=== PATIENT | female | born 1975 | race Caucasian/White ===

== ENCOUNTER 2017-08-19 06:35 | Day surgery (SDC) | payer BC ==
[2017-08-19] MEDS ORDERED: Lactated Ringers 1,000 ML IV SCH (07:00)
[2017-08-19] MEDS ORDERED: Clindamycin Phosphate in D5W 600 MG in Premix Bag 1 BAG IV ONE ×2 (07:00)
[2017-08-19] MEDS ORDERED: fentaNYL 100 MCG/2 ML SDV ONE (07:12)
[2017-08-19] MEDS ORDERED: Propofol 200 MG/20 ML SDV ONE (07:12)
[2017-08-19] MEDS ORDERED: Lidocaine 2% 5 ML SDV ONE (07:12)
[2017-08-19] MEDS ORDERED: Midazolam 1 MG/ML 2 ML SDV ONE (07:12)
[2017-08-19] MEDS ORDERED: Bupivacaine 25%/EPINEPHrine/PF 30 ML ONE (07:21)
--- NOTE | 2017-08-19 07:24 | PCM.PREANE ---
Preanesthetic Assessment - Anesthesia/Transfusion/Family Hx Anesthesia History: Prior Anesthesia Without Reaction Family History of Anesthesia Reaction: No Transfusion History: No Prior Transfusion(s) Intubation History: Unknown - Physical Assessment Height: 1.63 m Weight: 92.533 kg ASA Class: 2 Mental Status: Alert & Oriented x3 Airway Class: Mallampati = 2 Dentition: Reports: Normal Dentition Thyro-Mental Finger Breadths: 3 Mouth Opening Finger Breadths: 3 ROM/Head Extension: Full Lungs: Clear to Auscultation, Normal Respiratory Effort Cardiovascular: Regular Rate, Regular Rhythm - Allergies Allergies/Adverse Reactions: Allergies Allergy/AdvReac Type Severity Reaction Status Date / Time adhesive tape Allergy Rash Verified 08/13/17 11:25 codeine Allergy Airway Verified 08/13/17 11:25 Tightness Penicillins Allergy Rash Verified 08/13/17 11:25 - Blood Blood Available: No - Anesthesia Plan Pre-Op Medication Ordered: None - Acknowledgements Anesthesia Type Planned: MAC Pt an Appropriate Candidate for the Planned Anesthesia: Yes Alternatives and Risks of Anesthesia Discussed w Pt/Guardian: Yes Pt/Guardian Understands and Agrees with Anesthesia Plan: Yes PreAnesthesia Questionnaire Other HEENT History: wears glasses for driving Cardiovascular History: Reports: Heart Murmur Respiratory History: Reports: Asthma (mild) Other Respiratory History: has not uses rescue inhaler for a year Gastrointestinal History: Reports: None Genitourinary History: Reports: None 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 Musculoskeletal History: Reports: Fracture Other Musculoskeletal History: hx of fx left ankle Neurological History: Reports: None Psychiatric History: Reports: Anxiety, Depression Other Psychiatric History: very anxious about this procedure Endocrine/Metabolic History: Reports: Hypothyroidism, Obesity/BMI 30+ Hematologic History: Reports: None Immunologic History: Reports: None Oncologic (Cancer) History: Reports: None Dermatologic History: Reports: Eczema Other Dermatologic History: acne - Past Surgical History HEENT Surgical History: Reports: LASIK Female Surgical History: Reports: Breast Biopsy (bilateral breast lumpectomy) , Hysterectomy - SUBSTANCE USE Smoking Status *Q: Never Smoker Recreational Drug Use History: No - HOME MEDS Home Medications: Home Meds Albuterol [Ventolin HFA] 2 puff INH QID PRN 07/18/16 [History] Clindamycin Phosphate 1 applic TOP BID PRN 07/18/16 [History] Levothyroxine Sodium [Synthroid] 300 mg PO DAILY 07/18/16 [History] Levothyroxine [Synthroid] 50 mg PO DAILY 07/18/16 [History] Montelukast [Singulair] 10 mg PO DAILY PRN 07/18/16 [History] Sertraline [Zoloft] 100 mg PO DAILY 07/18/16 [History] Nystatin [Nystatin Ointment] 1 applic TOP ASDIRECTED PRN 08/13/17 [History] - CURRENT (IN HOUSE) MEDS Current Meds: Current Medications Bupivacaine HCl/Epinephrine Bitart (Marcaine 0.25%/Epinephrine 1:200,000) 10 ml INJECT ONETIME ONE Stop: 08/19/17 08:01 Lactated Ringer's (Ringers, Lactated) 1,000 mls @ 125 mls/hr IV ASDIRECTED ROMY Last Admin: 08/19/17 07:15 Dose: 125 mls/hr Discontinued Medications Fentanyl (Sublimaze) Confirm Administered Dose 100 mcg .ROUTE .STK-MED ONE Stop: 08/19/17 07:13 Clindamycin Phosphate 600 mg/ (Premix) 50 mls @ 150 mls/hr IV ONETIME ONE Stop: 08/19/17 07:19 Lidocaine (Xylocaine-Mpf 2%) Confirm Administered Dose 5 ml .ROUTE .STK-MED ONE Stop: 08/19/17 07:13 Midazolam HCl (Versed 1 Mg/Ml) Confirm Administered Dose 2 mg .ROUTE .STK-MED ONE Stop: 08/19/17 07:13 Propofol (Diprivan 20 Ml) Confirm Administered Dose 200 mg .ROUTE .STK-MED ONE Stop: 08/19/17 07:13
[2017-08-19] MEDS ORDERED: Bupivacaine 0.25%/EPINEPHrine 1:200,000 10 ML SDV INJECT ONE (08:00)
--- NOTE | 2017-08-19 09:01 | PCM48HPAN ---
Post Anesthesia Note - EVALUATION WITHIN 48HRS OF ANESTHETIC Vital Signs in Normal Range: Yes Patient Participated in Evaluation: Yes Respiratory Function Stable: Yes Airway Patent: Yes Cardiovascular Function Stable: Yes Hydration Status Stable: Yes Pain Control Satisfactory: Yes Nausea and Vomiting Control Satisfactory: Yes Mental Status Recovered: Yes - COMMENTS/OBSERVATIONS Free Text/Narrative:: No anesthesia problems. Patient skipped recovery room phase of postoperative care.
[2017-08-19 09:08] VITALS: BP 119/68
--- NOTE | 2017-08-20 18:02 | PCM.OPNOTE ---
- General Post-Op/Procedure Note Date of Surgery/Procedure: 08/19/17 Operative Procedure(s): left carpal tunnel release Pre Op Diagnosis: left carpal tunnel Post-Op Diagnosis: Same Anesthesia Technique: Local, MAC Primary Surgeon: Ita Hines Senior Licensing Manager: Maria Esther Mohamud Complications: None Condition: Good Free Text/Narrative:: [id number]
--- NOTE | 2017-08-20 23:22 | OR ---
SURGEON: MATT ARGUETA MD DATE OF PROCEDURE: 08/19/2017 PREOPERATIVE DIAGNOSIS: Left carpal tunnel syndrome. POSTOPERATIVE DIAGNOSIS: Left carpal tunnel syndrome. PROCEDURE PERFORMED: Left carpal tunnel release. INDICATIONS: Ms. Norton is seen today in evaluation for left carpal tunnel syndrome. Risks and benefits of left carpal tunnel release were discussed with her and she was in agreement to proceed. Risks were including, but not limited to, bleeding, infection, damage to underlying or overlying structures, possible need for future interventions and possible scarring. PROCEDURE IN DETAIL: After informed consent was obtained and placed on the chart, the patient was brought to the operating theater and laid in supine position. After adequate local MAC anesthetic was obtained, the area was prepped and draped in a normal fashion and then a time-out was completed to confirm side and site. Once adequately prepped and draped and confirmed, the arm was exsanguinated. The tourniquet was insufflated to 200 mmHg and the dissection was then carried over the transverse carpal ligament with a 15 blade through the skin and subcutaneous tissues. Under direct visualization, the ligament was breached and dissection was carried distally and proximally using a littler scissors. Once adequately released, the area was irrigated and closed using 5-0 nylon stitch in a horizontal mattress fashion. The wounds were dressed with Xeroform, fluffs, and a Kerlix gauze dressing and a 2-inch Rhys wrap. The tourniquet was desufflated at the end the case. FOLLOWUP INSTRUCTIONS: The patient will see us in clinic in 10 to 14 days for suture removal, sooner if any problems, questions, or concerns. All counts and needles were correct at the end the case. HEGGTHE / MODL /[id number]
== END 2017-08-19 09:10 | disposition home or self-care (01) ==
LOC: MW.SDS 06:35
PROVIDERS: ATTEND Plastic Surgery
DX: G56.03 Carpal tunnel syndrome, bilateral upper limbs (principal); J45.909 Unspecified asthma, uncomplicated; F41.9 Anxiety disorder, unspecified; F32.9 Major depressive disorder, single episode, unspecified; E03.9 Hypothyroidism, unspecified; E66.9 Obesity, unspecified; Z88.0 Allergy status to penicillin; Z88.5 Allergy status to narcotic agent; Z91.048 Other nonmedicinal substance allergy status; Z79.899 Other long term (current) drug therapy; Z68.35 Body mass index [BMI] 35.0-35.9, adult; Z90.710 Acquired absence of both cervix and uterus; Z98.890 Other specified postprocedural states
CPT/HCPCS: 64721; J2250; J3010; J7120; 01810; J2704

== ENCOUNTER 2018-07-21 06:28 | Day surgery (SDC) | payer BC ==
[2018-07-21] MEDS ORDERED: Lactated Ringers 1,000 ML IV SCH ×3 (06:45→08:00)
[2018-07-21] MEDS ORDERED: Sodium Chloride 0.9% 10 ML Syringe FLUSH PRN (06:54)
[2018-07-21] MEDS ORDERED: Sodium Chloride 0.9% 2.5 ML Syringe FLUSH PRN (06:54)
[2018-07-21] MEDS ORDERED: Midazolam 1 MG/ML 2 ML SDV ONE (06:57)
[2018-07-21] MEDS ORDERED: fentaNYL 100 MCG/2 ML SDV ONE (06:57)
[2018-07-21] MEDS ORDERED: Propofol 200 MG/20 ML SDV ONE (06:57)
[2018-07-21] MEDS ORDERED: Clindamycin Phosphate in D5W 600 MG in Premix Bag 50 BAG IV ONE ×2 (07:00)
--- NOTE | 2018-07-21 07:03 | PCM.PREANE ---
Preanesthetic Assessment - Anesthesia/Transfusion/Family Hx Anesthesia History: Prior Anesthesia Without Reaction Transfusion History: No Prior Transfusion(s) Intubation History: Unknown - Review of Systems General: No Symptoms Pulmonary: No Symptoms Cardiovascular: No Symptoms Gastrointestinal: No Symptoms Neurological: No Symptoms Other: Reports: None - Physical Assessment NPO Status Date: 07/21/18 NPO Status Time: 05:00 (Sips H2o WITH PILL) O2 Sat by Pulse Oximetry: 95 Respiratory Rate: 15 Vital Signs: Last Vital Signs Temp 98.4 F 07/21/18 06:45 Pulse 88 07/21/18 06:45 Resp 15 07/21/18 06:45 BP 128/67 07/21/18 06:45 Pulse Ox 95 07/21/18 06:45 Height: 5 ft 4 in Weight: 94.801 kg ASA Class: 3 Mental Status: Alert & Oriented x3 Airway Class: Mallampati = 2 Dentition: Reports: Normal Dentition Thyro-Mental Finger Breadths: 3 Mouth Opening Finger Breadths: 3 ROM/Head Extension: Full Lungs: Clear to Auscultation, Normal Respiratory Effort Cardiovascular: Regular Rate, Regular Rhythm - Allergies Allergies/Adverse Reactions: Allergies Allergy/AdvReac Type Severity Reaction Status Date / Time adhesive tape Allergy Rash Verified 07/14/18 13:20 codeine Allergy Airway Verified 07/14/18 13:20 Tightness Penicillins Allergy Rash Verified 07/14/18 13:20 - Acknowledgements Anesthesia Type Planned: MAC Pt an Appropriate Candidate for the Planned Anesthesia: Yes Alternatives and Risks of Anesthesia Discussed w Pt/Guardian: Yes Pt/Guardian Understands and Agrees with Anesthesia Plan: Yes PreAnesthesia Questionnaire HEENT History: Reports: Allergic Rhinitis Other HEENT History: wears glasses for driving Cardiovascular History: Reports: Heart Murmur Respiratory History: Reports: Asthma Other Respiratory History: has not uses rescue inhaler for a year Gastrointestinal History: Reports: None Genitourinary History: Reports: None GUARDIAN AD LITEM History: Reports: Endometriosis Musculoskeletal History: Reports: Fracture Other Musculoskeletal History: hx of fx right ankle Neurological History: Reports: None Psychiatric History: Reports: Depression Other Psychiatric History: very anxious about this procedure Endocrine/Metabolic History: Reports: Hypothyroidism, Obesity/BMI 30+ Hematologic History: Reports: Anemia Immunologic History: Reports: None Oncologic (Cancer) History: Reports: None Dermatologic History: Reports: Eczema Other Dermatologic History: acne - Past Surgical History Head Surgeries/Procedures: Reports: None HEENT Surgical History: Reports: LASIK Female Surgical History: Reports: Breast Biopsy, Hysterectomy Musculoskeletal Surgical History: Reports: Carpal Tunnel - SUBSTANCE USE Smoking Status *Q: Never Smoker Recreational Drug Use History: No - HOME MEDS Home Medications: Home Meds Clindamycin Phosphate 1 applic TOP BID PRN 07/18/16 [History] Montelukast [Singulair] 10 mg PO DAILY PRN 07/18/16 [History] Sertraline [Zoloft] 100 mg PO DAILY 07/18/16 [History] Fluticasone/Vilanterol [Breo Ellipta 200-25 Mcg INH] 1 dose INH DAILY PRN [History] Levothyroxine 75 mcg PO QAM 07/15/18 [History] Levothyroxine 200 mcg PO QAM 07/15/18 [History] - CURRENT (IN HOUSE) MEDS Current Meds: Current Medications Lactated Ringer's (Ringers, Lactated) 1,000 mls @ 125 mls/hr IV ASDIRECTED ROMY Last Admin: 07/21/18 06:59 Dose: 125 mls/hr Lactated Ringer's (Ringers, Lactated) 1,000 mls @ 125 mls/hr IV ASDIRECTED ROMY Sodium Chloride (Saline Flush) 10 ml FLUSH ASDIRECTED PRN PRN Reason: Keep Vein Open Sodium Chloride (Saline Flush) 2.5 ml FLUSH ASDIRECTED PRN PRN Reason: Keep Vein Open Discontinued Medications Fentanyl (Sublimaze) Confirm Administered Dose 100 mcg .ROUTE .STK-MED ONE Stop: 07/21/18 06:58 Lidocaine HCl (Xylocaine-Mpf 1%) Confirm Administered Dose 5 mls @ as directed .ROUTE .STK-MED ONE Stop: 07/21/18 06:58 Midazolam HCl (Versed 1 Mg/Ml) Confirm Administered Dose 2 mg .ROUTE .STK-MED ONE Stop: 07/21/18 06:58 Propofol (Diprivan 20 Ml) Confirm Administered Dose 200 mg .ROUTE .STK-MED ONE Stop: 07/21/18 06:58
[2018-07-21] MEDS ORDERED: Bupivacaine 0.25%/EPINEPHrine 1:200,000 10 ML SDV ONE (07:31)
[2018-07-21 08:46] VITALS: BP 140/77
--- NOTE | 2018-07-21 08:52 | PCM48HPAN ---
Post Anesthesia Note - EVALUATION WITHIN 48HRS OF ANESTHETIC Vital Signs in Normal Range: Yes Patient Participated in Evaluation: Yes Respiratory Function Stable: Yes Airway Patent: Yes Cardiovascular Function Stable: Yes Hydration Status Stable: Yes Pain Control Satisfactory: Yes Nausea and Vomiting Control Satisfactory: Yes Mental Status Recovered: Yes Resp Rate: 15
--- NOTE | 2018-07-21 09:12 | PCM.OPNOTE ---
- General Post-Op/Procedure Note Date of Surgery/Procedure: 07/21/18 Operative Procedure(s): right carpal tunnel release Pre Op Diagnosis: right carpal tunnel syndrome Post-Op Diagnosis: Same Anesthesia Technique: Local, MAC Primary Surgeon: Ita Hines Supervisor Fleshing: Maria Esther Mohamud Role of Supervisor Fleshing: r/p/d/c/p Complications: None Condition: Good
[2018-07-22] MEDS ORDERED: Acetaminophen/HYDROcodone 325-5 MG Tab PO PRN (08:00)
--- NOTE | 2018-07-22 15:15 | OR ---
SURGEON: MATT ARGUETA MD DATE OF PROCEDURE: 07/21/2018 PREOPERATIVE DIAGNOSIS: Right carpal tunnel syndrome. POSTOPERATIVE DIAGNOSIS: Right carpal tunnel syndrome. PROCEDURES: Right carpal tunnel release. OR MANAGER: Maria Esther Mohamud. REASON FOR AND ROLE OF OR MANAGER: Retraction, prepping, draping, positioning and closure assistance. ANESTHESIA: Local MAC. INDICATIONS: Ms. Norton is a 43-year-old female seen today in evaluation for right carpal tunnel release. Risks and benefits were discussed with her and she was in agreement to proceed. Risks were including, but not limited to, bleeding, infection, damage to underlying or overlying structures, possible need for future interventions, possible scarring. PROCEDURE IN DETAIL: After informed consent was obtained and placed on the chart, the patient was brought to the operating theater and laid in supine position. After adequate local MAC anesthesia was obtained, the area was prepped and draped, and a time- out was completed to confirm side and site. Once adequately confirmed, attention was then paid to 0.25% Marcaine with epinephrine injection. The arm was then exsanguinated and tourniquet was insufflated to 200 mmHg. Attention was then paid to dissection over the transverse carpal ligament. A #15 blade was used to dissect through skin and subcutaneous tissues. Once adequately breached, the dissection was carried distally and proximally under direct visualization until complete release of ligament. Once adequately released, the area was copiously irrigated and closed in an interrupted fashion using a 5-0 nylon stitch in a horizontal mattress fashion. Once closed, the wound was dressed with Xeroform fluffs, 2-inch Denise, and a 2- inch Rhys wrap. The patient tolerated this well. All counts needles were correct at the end of the case. FOLLOWUP INSTRUCTIONS: The patient will see us in approximately 2 weeks or sooner if any problems, questions, or concerns. HEGGTHE / RUBÉNL /[id number]
== END 2018-07-21 08:50 | disposition home or self-care (01) ==
LOC: MW.SDS 06:28
PROVIDERS: ATTEND Plastic Surgery
DX: G56.01 Carpal tunnel syndrome, right upper limb (principal); J45.909 Unspecified asthma, uncomplicated; E66.9 Obesity, unspecified; Z68.35 Body mass index [BMI] 35.0-35.9, adult; F32.9 Major depressive disorder, single episode, unspecified; E03.9 Hypothyroidism, unspecified; Z79.899 Other long term (current) drug therapy; Z88.5 Allergy status to narcotic agent; Z88.1 Allergy status to other antibiotic agents; Z91.048 Other nonmedicinal substance allergy status
CPT/HCPCS: 64721; J2250; J2704; J3010; J3490; J7120

== ENCOUNTER 2021-09-17 10:56 | Day surgery (SDC) | payer BC ==
[~2021-09-17 10:56] MED LIST: Clindamycin Phosphate in D5W 600 MG in Premix Bag 1 BAG IV ONE; Lactated Ringers 1,000 ML IV SCH; Sodium Chloride 0.9% 10 ML SDV IV PRN; Sodium Chloride 0.9% 10 ML Syringe FLUSH PRN; Sodium Chloride 0.9% 2.5 ML Syringe FLUSH PRN
[2021-09-17] MEDS ORDERED: Albuterol 0.083% 2.5 MG/3 ML Neb Soln NEB PRN (11:12)
[2021-09-17] MEDS ORDERED: Metoclopramide 10 MG/2 ML SDV IVPUSH PRN (11:12)
[2021-09-17] MEDS ORDERED: Naloxone 0.4 MG/ML SDV IVPUSH PRN (11:12)
[2021-09-17] MEDS ORDERED: fentaNYL 100 MCG/2 ML SDV IVPUSH PRN ×2 (11:12→14:32)
[2021-09-17] MEDS ORDERED: Ondansetron 4 MG/2 ML SDV IVPUSH PRN (11:12)
[2021-09-17] MEDS ORDERED: HYDROmorphone 1 MG/ML Syringe IVPUSH PRN (11:12)
--- NOTE | 2021-09-17 11:24 | PCM.PREANE ---
Preanesthetic Assessment - Procedure Proposed Procedure: Excision of Left Buttock Melanoma - Anesthesia/Transfusion/Family Hx Anesthesia History: Prior Anesthesia Without Reaction Family History of Anesthesia Reaction: No Transfusion History: No Prior Transfusion(s) Intubation History: Unknown - Review of Systems General: No Symptoms Pulmonary: No Symptoms (Asthma PRN MDI) Cardiovascular: No Symptoms (HTN, HLD) Gastrointestinal: No Symptoms Neurological: No Symptoms Other: Reports: Diabetes (NIDDM), Liver Problems (Fatty Liver), Thyroid Problems (Hypo) - Physical Assessment NPO Status Date: 09/16/21 NPO Status Time: 22:00 Height: 5 ft 5 in Weight: 93.44 kg ASA Class: 2 Mental Status: Alert & Oriented x3 Airway Class: Mallampati = 3 Dentition: Reports: Normal Dentition Thyro-Mental Finger Breadths: 3 Mouth Opening Finger Breadths: 3 ROM/Head Extension: Full Lungs: Clear to Auscultation, Normal Respiratory Effort Cardiovascular: Regular Rate, Regular Rhythm - Allergies Allergies/Adverse Reactions: Allergies Allergy/AdvReac Type Severity Reaction Status Date / Time adhesive tape Allergy Rash Verified 09/12/21 10:01 codeine Allergy Airway Verified 09/12/21 10:01 Tightness Penicillins Allergy Rash Verified 09/12/21 10:01 - Acknowledgements Anesthesia Type Planned: General Anesthesia Pt an Appropriate Candidate for the Planned Anesthesia: Yes Alternatives and Risks of Anesthesia Discussed w Pt/Guardian: Yes Pt/Guardian Understands and Agrees with Anesthesia Plan: Yes PreAnesthesia Questionnaire HEENT History: Reports: Allergic Rhinitis, Other (See Below) Other HEENT History: wears glasses Cardiovascular History: Reports: Heart Murmur, High Cholesterol, Hypertension Respiratory History: Reports: Asthma Gastrointestinal History: Reports: None Genitourinary History: Reports: None 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: Reports: Endometriosis, Musculoskeletal History: Reports: Fracture Other Musculoskeletal History: hx of fx right foot and thumb Neurological History: Reports: None Psychiatric History: Reports: Depression Other Psychiatric History: very anxious about this procedure Endocrine/Metabolic History: Reports: Diabetes, Type II, Hypothyroidism, Obesity/BMI 30+ Hematologic History: Reports: Anemia Immunologic History: Reports: None Oncologic (Cancer) History: Reports: Malignant Melanoma Other Oncologic History: 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 Dermatologic History: Reports: Psoriasis - Past Surgical History Head Surgeries/Procedures: Reports: None HEENT Surgical History: Reports: LASIK Cardiovascular Surgical History: Reports: None Respiratory Surgical History: Reports: None GI Surgical History: Reports: None Female Surgical History: Reports: Breast Biopsy, Hysterectomy Other Female Surgeries/Procedures: bilateral breast lumpectomy Endocrine Surgical History: Reports: None Neurological Surgical History: Reports: None Musculoskeletal Surgical History: Reports: Carpal Tunnel Oncologic Surgical History: Reports: None Dermatological Surgical History: Reports: Skin Biopsy - SUBSTANCE USE Tobacco Use Status *Q: Never Tobacco User - HOME MEDS Home Medications: Home Meds Montelukast [Singulair] 10 mg PO DAILY PRN 07/18/16 [History] Sertraline [Zoloft] 100 mg PO DAILY 07/18/16 [History] Fluticasone/Vilanterol [Breo Ellipta 200-25 MCG Inhalation Kit] 1 inhalation INH DAILY PRN 07/15/18 [History] Levothyroxine 100 mcg PO QAM 07/15/18 [History] Albuterol Sulfate [Albuterol Sulfate Hfa] 1 - 2 puff INH ASDIRECTED PRN 09/12/21 [History] Diclofenac Sodium 50 mg PO BID PRN 09/12/21 [History] Fluocinonide [Lidex 0.05% Oint] 1 applic TOP ASDIRECTED PRN 09/12/21 [History] Losartan [Cozaar] 50 mg PO DAILY 09/12/21 [History] Semaglutide [Ozempic] 1 injection SUBCUT WEEKLY 09/12/21 [History] Simvastatin 40 mg PO DAILY 09/12/21 [History] metFORMIN HCl [Metformin HCl] 500 mg PO QID 09/12/21 [History] sitaGLIPtin Phosphate [Januvia] 50 mg PO DAILY 09/12/21 [History] - CURRENT (IN HOUSE) MEDS Current Meds: Current Medications Clindamycin Phosphate 600 mg/ (Premix) 50 mls @ 100 mls/hr IV ONETIME ONE Stop: 09/17/21 11:15 Lactated Ringer's (Ringers, Lactated) 1,000 mls @ 125 mls/hr IV ASDIRECTED ROMY Sodium Chloride (Sodium Chloride 0.9% 10 Ml Sdv) 10 ml IV ASDIRECTED PRN PRN Reason: IV Use Sodium Chloride (Sodium Chloride 0.9% 10 Ml Syringe) 10 ml FLUSH ASDIRECTED PRN PRN Reason: Keep Vein Open Sodium Chloride (Sodium Chloride 0.9% 2.5 Ml Syringe) 2.5 ml FLUSH ASDIRECTED PRN PRN Reason: Keep Vein Open
[2021-09-17] MEDS ORDERED: Propofol 200 MG/20 ML SDV ONE (11:26)
[2021-09-17] MEDS ORDERED: Midazolam 1 MG/ML 2 ML SDV ONE (11:26)
[2021-09-17] MEDS ORDERED: fentaNYL 100 MCG/2 ML SDV ONE (11:26)
[2021-09-17] MEDS ORDERED: Ketorolac 30 MG/ML SDV ONE (11:32)
[2021-09-17] MEDS ORDERED: Lidocaine 2% 5 ML SDV ONE (11:32)
[2021-09-17] MEDS ORDERED: Ondansetron 4 MG/2 ML SDV ONE (11:32)
[2021-09-17] MEDS ORDERED: Glycopyrrolate 0.2 MG/ML SDV ONE (11:32)
[2021-09-17] MEDS ORDERED: Bupivacaine 0.5% 10 ML SDV ONE (13:10)
[2021-09-17] MEDS ORDERED: Lidocaine 1% 20 ML MDV ONE (13:10)
[2021-09-17] MEDS ORDERED: Octyl 2-Cyanoacrylate 1 Tube ONE (13:11)
--- NOTE | 2021-09-17 14:27 | PCM.OPNOTE ---
- General Post-Op/Procedure Note Date of Surgery/Procedure: 09/17/21 Operative Procedure(s): Excision left lateral buttock melanoma Findings: 4 x 2 x 2 cm excised piece of tissue Pre Op Diagnosis: Melanoma of left buttock Post-Op Diagnosis: same Anesthesia Technique: General LMA, Local Primary Surgeon: Tiffani Allison Condition: Good
[2021-09-17] MEDS ORDERED: Acetaminophen 1,000 MG in Premix Bag 1 BAG IV PRN (14:32)
--- NOTE | 2021-09-17 14:33 | PCM.POSTAN ---
POST ANESTHESIA ASSESSMENT - MENTAL STATUS Mental Status: Alert - VITAL SIGNS Vital Signs: Last Vital Signs Temp 36.1 C 09/17/21 11:15 Pulse 79 09/17/21 11:15 Resp 16 09/17/21 11:15 BP 122/67 09/17/21 11:15 Pulse Ox 95 09/17/21 11:15 - RESPIRATORY Respiratory Status: Respiratory Rate WNL - CARDIOVASCULAR CV Status: Pulse Rate WNL - GASTROINTESTINAL GI Status: No Symptoms - POST OP HYDRATION Hydration Status: Adequate & Stable
--- NOTE | 2021-09-17 14:48 | PCM48HPAN ---
Post Anesthesia Note - EVALUATION WITHIN 48HRS OF ANESTHETIC Vital Signs in Normal Range: Yes Patient Participated in Evaluation: Yes Respiratory Function Stable: Yes Airway Patent: Yes Cardiovascular Function Stable: Yes Hydration Status Stable: Yes Pain Control Satisfactory: Yes Nausea and Vomiting Control Satisfactory: Yes Mental Status Recovered: Yes Vital Signs: Last Vital Signs Temp 36.3 C 09/17/21 14:27 Pulse 80 09/17/21 14:43 Resp 15 09/17/21 14:43 BP 124/75 09/17/21 14:37 Pulse Ox 94 L 09/17/21 14:43
[2021-09-17 15:33] VITALS: BP 112/70; PULSE 76
--- NOTE | 2021-09-18 18:29 | OR ---
SURGEON: TIFFANI ALLISON MD DATE OF PROCEDURE: 09/17/2021 PREOPERATIVE DIAGNOSIS: Left buttock melanoma. POSTOPERATIVE DIAGNOSIS: Left buttock melanoma. PROCEDURE PERFORMED: Excision, left buttock melanoma. PRIMARY SURGEON: Tiffani Allison MD ANESTHESIA: General LMA, local. FLUIDS: 650 mL crystalloid. ESTIMATED BLOOD LOSS: 10 mL. FINDINGS: 4 cm x 2 cm x 2 cm excised piece of tissue containing previously biopsied melanoma. Margins were marked with intraoperative paint. COMPLICATIONS: None. 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 During her recent exam, a lesion was biopsied and found to be melanoma. Its Breslow depth was 0.45 mm. She was sent to my office for a complete excision with margins. The patient and I discussed the procedure, expected perioperative course, and the risks. She verbalized understanding and wishes to proceed. PROCEDURE IN DETAIL: The patient was brought in to the OR and placed on the OR cart in a right lateral decubitus position. A time-out was completed verifying the patient's name, age, date of , allergies, and procedure to be performed. The melanoma site was marked in the preoperative area and margins were measured out. General LMA anesthesia was induced. The left hip was prepped and draped in usual standard fashion. I anesthetized the area around my operative site with a 1:1 mixture of 0.5% Marcaine plain and 1% lidocaine plain. An elliptical incision was made along the skin lines, making sure to take a 1 cm circumferential margin around the melanoma site. Electrocautery was then used to dissect down to the subcutaneous fat. I dissected down to a depth of 1 cm. I then used electrocautery to undermine the lesion. Once the lesion was free of the surrounding tissue, it was placed on the back table and margins were inked with intraoperative paint. I then measured my piece of tissue. The specimen measured 4 x 2 x 2 cm in size. It was sent to Pathology labeled as left buttock melanoma. Electrocautery was used to achieve hemostasis within the wound bed itself. I then undermined the skin on the superior and posterior skin edges of the buttock to allow some redundancy and more of a tension-free closure. The subcutaneous fat layer was closed with interrupted layers of 3-0 Vicryl suture. The skin was closed with interrupted horizontal mattress stitches using 3-0 Ethilon. To then support this incision, interrupted 3-0 Ethilon sutures were placed in-between my horizontal mattress sutures. The wound was then covered with a sterile dressing. The patient was extubated and taken to PACU in stable condition. All counts were complete and correct at the end of the case, and she tolerated it well with no apparent complications. BLANCA MASSEY /[id number] JAMES
== END 2021-09-17 15:36 | disposition home or self-care (01) ==
LOC: MW.SDS 10:56
PROVIDERS: ATTEND Surgery
DX: C43.59 Malignant melanoma of other part of trunk (principal); J45.909 Unspecified asthma, uncomplicated; E03.9 Hypothyroidism, unspecified; F32.A Depression, unspecified; I10 Essential (primary) hypertension; E78.5 Hyperlipidemia, unspecified; E11.9 Type 2 diabetes mellitus without complications; Z88.5 Allergy status to narcotic agent; Z88.0 Allergy status to penicillin; Z79.899 Other long term (current) drug therapy; Z79.890 Hormone replacement therapy; Z98.890 Other specified postprocedural states; Z79.84 Long term (current) use of oral hypoglycemic drugs
CPT/HCPCS: 11604; 12032; J1885; J2250; J2370; J2405; J2704; J3490; J7120; A9270-GY; J3010

== ENCOUNTER 2021-10-03 05:27 | Emergency (ER) | payer BC ==
--- NOTE | 2021-10-03 05:45 | EDM.PDOC ---
ED HPI GENERAL MEDICAL PROBLEM - General Chief Complaint: Skin Complaint Stated Complaint: INCISION OPEN AND BLEEDING Time Seen by Provider: 10/03/21 05:28 Source of Information: Reports: Patient History Limitations: Reports: No Limitations - History of Present Illness INITIAL COMMENTS - FREE TEXT/NARRATIVE: 46-year-old female status post left buttock melanoma complete excision with margins by Dr. Allison on 09/17/21, she had stitches placed postoperatively, and they were removed yesterday by Dr. Allison. She had Steri-Strips applied yesterday after the stitches were removed. Patient went to sleep this evening with no issues and woke up just prior to arrival with blood around her left buttock, and she noticed a wound was gaping and actively bleeding. ROS: A 10-point review of systems, other than pertinent positives and negatives as stated per HPI, is otherwise negative Past medical history: No additional pertinent history Past Surgical history: No additional pertinent history Social history: No additional pertinent history Family history: No additional pertinent history PHYSICAL EXAM General: AOx4, GCS = 15, No distress HEENT: dry mucous membrane Neck: supple, no meningismus, no Kernig or Brudzinski Cardiac: S1S2 RRR Respiratory: CTAB, no crackles or rales, no wheezing Abdomen: Soft, nontender, no rebound or guarding, nondistended, no pulsatile mass. Back: nontender Skin: 2 cm left buttock surgical wound dehiscence with mild bleeding. Musculoskeletal: NVI distally, no deformity Neuro: No focal deficits, CN 2 - 12 WNL. Left Buttock Pain Score (Numeric/FACES): 3 - Related Data Allergies Allergy/AdvReac Type Severity Reaction Status Date / Time adhesive tape Allergy Rash Verified 10/03/21 05:34 codeine Allergy Airway Verified 10/03/21 05:34 Tightness Penicillins Allergy Rash Verified 10/03/21 05:34 Home Meds: Home Meds Montelukast [Singulair] 10 mg PO DAILY PRN 09/02/16 [History] Sertraline [Zoloft] 100 mg PO DAILY 07/18/16 [History] Fluticasone/Vilanterol [Breo Ellipta 200-25 MCG Inhalation Kit] 1 inhalation INH DAILY PRN 07/15/18 [History] Levothyroxine 100 mcg PO QAM 07/15/18 [History] Albuterol Sulfate [Albuterol Sulfate Hfa] 1 - 2 puff INH ASDIRECTED PRN 09/12/21 [History] Diclofenac Sodium 50 mg PO BID PRN 09/12/21 [History] Fluocinonide [Lidex 0.05% Oint] 1 applic TOP ASDIRECTED PRN 09/12/21 [History] Losartan [Cozaar] 50 mg PO DAILY 09/12/21 [History] Semaglutide [Ozempic] 1 injection SUBCUT WEEKLY 09/12/21 [History] Simvastatin 40 mg PO DAILY 09/12/21 [History] metFORMIN HCl [Metformin HCl] 500 mg PO QID 09/12/21 [History] sitaGLIPtin Phosphate [Januvia] 50 mg PO DAILY 09/12/21 [History] Past Medical History HEENT History: Reports: Allergic Rhinitis, Other (See Below) Other HEENT History: wears glasses Cardiovascular History: Reports: Heart Murmur, High Cholesterol, Hypertension Respiratory History: Reports: Asthma Gastrointestinal History: Reports: None Genitourinary History: Reports: None [employer] 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, Musculoskeletal History: Reports: Fracture Other Musculoskeletal History: hx of fx right foot and thumb Neurological History: Reports: None Psychiatric History: Reports: Depression Other Psychiatric History: very anxious about this procedure Endocrine/Metabolic History: Reports: Diabetes, Type II, Hypothyroidism, Obesity/BMI 30+ Hematologic History: Reports: Anemia Immunologic History: Reports: None Oncologic (Cancer) History: Reports: Malignant Melanoma Other Oncologic History: 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 Dermatologic History: Reports: Psoriasis - Past Surgical History Head Surgeries/Procedures: Reports: None HEENT Surgical History: Reports: LASIK Cardiovascular Surgical History: Reports: None Respiratory Surgical History: Reports: None GI Surgical History: Reports: None Female Surgical History: Reports: Breast Biopsy, Hysterectomy Other Female Surgeries/Procedures: bilateral breast lumpectomy Endocrine Surgical History: Reports: None Neurological Surgical History: Reports: None Musculoskeletal Surgical History: Reports: Carpal Tunnel Oncologic Surgical History: Reports: None Dermatological Surgical History: Reports: Skin Biopsy Social & Family History - Caffeine Use Caffeine Use: Reports: Soda ED ROS GENERAL - Review of Systems Review Of Systems: See Below (see dictation) ED EXAM, SKIN/RASH Exam: See Below (see dictation) Course - Vital Signs Last Recorded V/S: Last Vital Signs Temp 97.2 F 10/03/21 05:34 Pulse 107 H 10/03/21 05:34 Resp 18 10/03/21 05:34 BP 135/85 10/03/21 05:34 Pulse Ox 96 10/03/21 05:34 - Orders/Labs/Meds Orders: Active Orders 24 hr Category Date Time Status Dressing Change [Wound Care] [RC] DAILY Care 10/03/21 06:36 Active Nothing Per Oral Diet [DIET] Diet 10/03/21 Breakfast Active CORONAVIRUS COVID-19 WARNER [MOLEC] Stat Lab 10/03/21 06:35 Ordered - Re-Assessments/Exams Free Text/Narrative Re-Assessment/Exam: 10/03/21 06:[address] Tiffani Allison, recommends keeping her n.p.o., testing for Covid, wet-to-dry dressing and she will come assess the patient for consent for surgery. 10/03/21 06:59 Patient signed out to Dr. Barclay for ultimate disposition pending Dr. Allison assessment in the ER. Departure - Departure Time of Disposition: 07:00 Disposition: Still A Patient 30 Condition: Good Clinical Impression: Wound dehiscence, surgical - Discharge Information *PRESCRIPTION DRUG MONITORING PROGRAM REVIEWED*: Not Applicable *COPY OF PRESCRIPTION DRUG MONITORING REPORT IN PATIENT LAZARO: Not Applicable Instructions: Wound Dehiscence Referrals: Sophia Nevarez SAVE ALL OPERATOR [Primary Care Provider] - Forms: ED Department Discharge Sepsis Event Note (ED) - Focused Exam Vital Signs: Vital Signs Temp Pulse Resp BP Pulse Ox 10/03/21 05:34 97.2 F 107 H 18 135/85 96 - My Orders Last 24 Hours: My Active Orders 10/03/21 Breakfast Nothing Per Oral Diet [DIET] 10/03/21 06:35 CORONAVIRUS COVID-19 WARNER [MOLEC] Stat 10/03/21 06:36 Dressing Change [Wound Care] [RC] DAILY - Assessment/Plan Last 24 Hours: My Active Orders 10/03/21 Breakfast Nothing Per Oral Diet [DIET] 10/03/21 06:35 CORONAVIRUS COVID-19 WARNER [MOLEC] Stat 10/03/21 06:36 Dressing Change [Wound Care] [RC] DAILY
[2021-10-03 05:52] VITALS: BP 135/85; PULSE 107
[2021-10-03] MEDS ORDERED: Lidocaine 1% with EPINEPHrine 1:100,000 20 ML MDV ONE (08:06)
--- NOTE | 2021-10-03 11:17 | PCM.CONS ---
H&P History of Present Illness - General Date of Service: 10/03/21 Source of Information: Patient History Limitations: Reports: No Limitations - History of Present Illness Initial Comments - Free Text/Narative: Patient is a 46-year-old female who last week underwent an excision of a biopsy- proven melanoma on the left buttock. Yesterday in clinic I removed her sutures. The wound appeared to be well-healed with no evidence of infection or wound breakdown. Steri-Strips were applied over the top of the incision for support. We discussed wound cares. This morning when she woke up she noticed blood and drainage coming from the incision. She noticed that it opened up. She came to the emergency room. Her vital signs were stable. I was called regarding this dehiscence. She denies any warmth or purulent drainage from the wound. The drainage appears bloody. The area is somewhat tender. Left Buttock Pain Score (Numeric/FACES): 3 - Related Data Allergies/Adverse Reactions: Allergies Allergy/AdvReac Type Severity Reaction Status Date / Time adhesive tape Allergy Rash Verified 10/03/21 05:34 codeine Allergy Airway Verified 10/03/21 05:34 Tightness Penicillins Allergy Rash Verified 10/03/21 05:34 Home Medications: Home Meds Montelukast [Singulair] 10 mg PO DAILY PRN 07/18/16 [History] Sertraline [Zoloft] 100 mg PO DAILY 07/18/16 [History] Fluticasone/Vilanterol [Breo Ellipta 200-25 MCG Inhalation Kit] 1 inhalation INH DAILY PRN 07/15/18 [History] Levothyroxine 100 mcg PO QAM 07/15/18 [History] Albuterol Sulfate [Albuterol Sulfate Hfa] 1 - 2 puff INH ASDIRECTED PRN 09/12/21 [History] Diclofenac Sodium 50 mg PO BID PRN 09/12/21 [History] Fluocinonide [Lidex 0.05% Oint] 1 applic TOP ASDIRECTED PRN 09/12/21 [History] Losartan [Cozaar] 50 mg PO DAILY 09/12/21 [History] Semaglutide [Ozempic] 1 injection SUBCUT WEEKLY 09/12/21 [History] Simvastatin 40 mg PO DAILY 09/12/21 [History] metFORMIN HCl [Metformin HCl] 500 mg PO QID 09/12/21 [History] sitaGLIPtin Phosphate [Januvia] 50 mg PO DAILY 09/12/21 [History] Past Medical History HEENT History: Reports: Allergic Rhinitis, Other (See Below) Other HEENT History: wears glasses Cardiovascular History: Reports: Heart Murmur, High Cholesterol, Hypertension Respiratory History: Reports: Asthma Gastrointestinal History: Reports: None Genitourinary History: Reports: None 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, Musculoskeletal History: Reports: Fracture Other Musculoskeletal History: hx of fx right foot and thumb Neurological History: Reports: None Psychiatric History: Reports: Depression Other Psychiatric History: very anxious about this procedure Endocrine/Metabolic History: Reports: Diabetes, Type II, Hypothyroidism, Obesity/BMI 30+ Hematologic History: Reports: Anemia Immunologic History: Reports: None Oncologic (Cancer) History: Reports: Malignant Melanoma Other Oncologic History: 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 Dermatologic History: Reports: Psoriasis - Infectious Disease History Infectious Disease History: Reports: Chicken Pox - Past Surgical History Head Surgeries/Procedures: Reports: None HEENT Surgical History: Reports: LASIK Cardiovascular Surgical History: Reports: None Respiratory Surgical History: Reports: None GI Surgical History: Reports: None Female Surgical History: Reports: Breast Biopsy, Hysterectomy Other Female Surgeries/Procedures: bilateral breast lumpectomy Endocrine Surgical History: Reports: None Neurological Surgical History: Reports: None Musculoskeletal Surgical History: Reports: Carpal Tunnel Oncologic Surgical History: Reports: None Dermatological Surgical History: Reports: Skin Biopsy Social & Family History - Family History Family Medical History: No Pertinent Family History - Tobacco Use Tobacco Use Status *Q: Never Tobacco User - Caffeine Use Caffeine Use: Reports: None - Recreational Drug Use Recreational Drug Use: No H&P Review of Systems - Review of Systems: Review Of Systems: Comprehensive ROS is negative, except as noted in HPI. Exam - Exam Exam: See Below - Vital Signs Vital Signs: Last Vital Signs Temp 36.2 C 10/03/21 05:34 Pulse 107 H 10/03/21 05:34 Resp 18 10/03/21 05:34 BP 135/85 10/03/21 05:34 Pulse Ox 96 10/03/21 05:34 Weight: 91.626 kg - Exam General: Alert, Oriented HEENT: Conjunctiva Clear, Mucosa Moist & [place] Lungs: Normal Respiratory Effort Cardiovascular: Regular Rate GI/Abdominal Exam: Soft, Non-Tender Extremities: Other (4.5 x 1.5 x 1.5 cm wound dehiscence along the midline of the patient's previous incision. The lateral and medial edges of the incision are together. The base of the wound has clotted blood on it. There is no evidence of cellulitis or purulent drainage.) - Patient Data Lab Results Last 24 hrs: Laboratory Results - last 24 hr 10/03/21 Range/Units 06:40 SARS-CoV-2 RNA (WARNER) NEGATIVE (NEGATIVE) Sepsis Event Note - Focused Exam Vital Signs: Vital Signs Temp Pulse Resp BP Pulse Ox 10/03/21 05:34 36.2 C 107 H 18 135/85 96 Consult PN Assessment/Plan Procedures: Procedures ASSAY THYROID STIM HORMONE (07/22/16) BLOOD TYPING SEROLOGIC ABO (07/22/16) BLOOD TYPING SEROLOGIC RH(D) (07/22/16) CARPAL TUNNEL SURGERY (07/21/18) CHORIONIC GONADOTROPIN ASSAY (07/22/16) COMPLETE CBC AUTOMATED (07/22/16) COMPLETE CBC W/AUTO DIFF WBC (07/22/16) EXC TR-EXT MAL+MERCY 3.1-4 CM (09/17/21) INTMD RPR S/A/T/EXT 2.6-7.5 (09/17/21) LAPARO-VAG HYST INCL T/O (07/22/16) METABOLIC PANEL TOTAL CA (07/22/16) RBC ANTIBODY SCREEN (07/22/16) ROUTINE VENIPUNCTURE (07/22/16) SARS-COV-2 COVID-19 AMP PRB (09/16/21) SELF-MGMT EDUC & TRAIN 1 PT (09/14/19) (1) Wound dehiscence, surgical SNOMED Code(s): 681669724 Code(s): T81.31XA - DISRUPTION OF EXTERNAL OPERATION (SURGICAL) WOUND, NEC, INIT Problem List Initiated/Reviewed/Updated: Yes Plan: I irrigated and cleaned the wound thoroughly at bedside. I then closed the wound with interrupted 3-0 Ethilon sutures over the top of the [place] drain to allow drainage. She should change her dressing daily. This dressing should just be a simple 4 x [address] with tape. I will see her Thursday in clinic to remove the [place] drain. I will leave the sutures in for an extended period of time. She should continue to monitor the wound for further breakdown. Should she note any signs of infection such as purulent drainage or cellulitis she should come back to the hospital or call my office to be started on antibiotics immediately.
--- NOTE | 2021-10-04 16:39 | OR ---
SURGEON: TIFFANI ALLISON MD DATE OF PROCEDURE: 10/03/2021 PREOPERATIVE DIAGNOSIS: Wound dehiscence. POSTOPERATIVE DIAGNOSIS: Wound dehiscence. PROCEDURE PERFORMED: Incision closure. PRIMARY SURGEON: Tiffani Allison MD ANESTHESIA: Local, 1% lidocaine with epinephrine. ESTIMATED BLOOD LOSS: 2 mL. FINDINGS: 4.4 x 1.5 x 1.5 surgical dehiscence along the midline of the patient's previous surgical incision. Base of the wound had clotted blood in it. No signs of infection. COMPLICATIONS: None. INDICATIONS: The patient is a 46-year-old female who underwent an excision of a biopsy-proven melanoma last week in the operating room. She had her sutures removed yesterday in clinic. She woke up this morning and noted drainage coming from the wound and saw that it had opened up. She presented to the emergency room. I was consulted and evaluated the wound at bedside. The wound edges are clean and there were no signs of infection. The decision was made to close this with interrupted sutures over a drain to allow closure. The patient and I discussed the procedure, expected perioperative course, and the risks of bleeding or infection. She verbalized understanding and wishes to proceed. PROCEDURE IN DETAIL: The patient was placed in a right lateral decubitus position on the ER cart. A time-out was completed verifying the patient's name, age, date of , allergies, and procedure to be performed. The wound was irrigated with a copious amount of normal saline and then cleaned with an iodine scrub. It was then draped in standard fashion. I measured the wound. It measured 4 x 1.5 x 1.5 cm in size. A quarter-inch [place] drain was brought into the field. This was trimmed to 5 to 6 cm long. It was placed in the base of the wound. An interrupted suture was used to secure the [place] through the incision along the lateral edge. I then closed the remainder of the wound with interrupted 3-0 Ethilon sutures. The wound was then covered with sterile dry gauze which was secured in place with tape. At the beginning of the procedure, I had anesthetized the wound with 7 mL of 1% lidocaine with epinephrine. The patient tolerated the procedure well with no acute complications. BLANCA / SHILPA /[id number]
== END 2021-10-03 08:42 | disposition still patient (30) ==
LOC: MW.ED 05:27
DX: T81.31XA Disruption of external operation (surgical) wound, not elsewhere classified, initial encounter (principal); E78.00 Pure hypercholesterolemia, unspecified; I10 Essential (primary) hypertension; E11.9 Type 2 diabetes mellitus without complications; E03.9 Hypothyroidism, unspecified; E66.9 Obesity, unspecified; J45.909 Unspecified asthma, uncomplicated; Z01.812 Encounter for preprocedural laboratory examination; Z20.822 Contact with and (suspected) exposure to COVID-19; Z88.5 Allergy status to narcotic agent; Z88.0 Allergy status to penicillin; Z79.899 Other long term (current) drug therapy; Z98.890 Other specified postprocedural states; Z79.890 Hormone replacement therapy; Z79.84 Long term (current) use of oral hypoglycemic drugs; Z68.33 Body mass index [BMI] 33.0-33.9, adult
CPT/HCPCS: 99283; U0002